=== PATIENT | female | born 1950 | race Caucasian/White ===

== ENCOUNTER 2022-07-19 09:15 | Observation (INO) | payer MEDICARE ==
[~2022-07-19] VITALS: Ht 157.5 cm; Wt 54.2 kg
[2022-07-19 10:13] LABS: BASO # 0.02 K/mm3 (0.02-0.10); HEMATOCRIT 37.1 % (37.0-47.0); HEMOGLOBIN 12.7 g/dL (12.5-16.0); LYMPH# 0.88 K/mm3 (1.50-4.00); MEAN CELL VOLUME 91 fl (78-100); MEAN CORPUSCULAR HEMOGLOBIN 31 pg (27-31); MEAN CORPUSCULAR HGB CONC 34 g/dL (33-37); MEAN PLATELET VOLUME 11.7 fl (7.4-10.4); NEU # 14.89 K/mm3 (1.40-6.50); PLATELET COUNT 291 K/mm3 (130-400); RED BLOOD COUNT 4.06 M/mm3 (4.10-5.30); RED CELL DISTRIBUTION WIDTH 12.7 % (11.5-14.5); WHITE BLOOD COUNT 16.9 K/mm3 (4.8-10.8)
[2022-07-19 10:24] LABS: POTASSIUM 4.1 mmol/L (3.5-5.1)
[2022-07-19 10:25] LABS: CALCIUM 9.4 mg/dL (8.3-10.5)
[2022-07-19 10:26] LABS: TOTAL PROTEIN 7.5 g/dL (6.2-8.1)
[2022-07-19 10:28] LABS: TOTAL BILIRUBIN 3.1 mg/dL (0.2-1.2)
[2022-07-19 11:25] LABS: URINE APPEARANCE CLOUDY; URINE COLOR YELLOW; URINE GLUCOSE NEGATIVE (NEGATIVE); URINE KETONE 1+ (NEGATIVE); URINE PROTEIN(semi-quant) 1+ (NEGATIVE)
[2022-07-19 11:26] LABS: URINE BILIRUBIN NEGATIVE (NEGATIVE); URINE BLOOD 50 ery/uL (NEGATIVE); URINE LEUKOCYTE ESTERASE 1+ (NEGATIVE); URINE NITRATE POSITIVE (NEGATIVE); URINE UROBILINOGEN 8 mg/dL (NORMAL); URINE WBC >50 /hpf (0-3)
[2022-07-19 14:37] VITALS: BP 103/64
[2022-07-19 18:10] VITALS: BP 107/67
[2022-07-19 21:30] VITALS: BP 107/61
[2022-07-20 02:04] VITALS: BP 132/77
[2022-07-20 06:20] VITALS: BP 117/64
[2022-07-20 09:54] LABS: BASO # 0.03 K/mm3 (0.02-0.10); EOS # 0.11 K/mm3 (0.04-0.40); EOS % 0.7 % (1.0-5.0); HEMATOCRIT 35.5 % (37.0-47.0); HEMOGLOBIN 11.9 g/dL (12.5-16.0); LYMPH# 1.24 K/mm3 (1.50-4.00); MEAN CELL VOLUME 93 fl (78-100); MEAN CORPUSCULAR HEMOGLOBIN 31 pg (27-31); MEAN CORPUSCULAR HGB CONC 34 g/dL (33-37); MEAN PLATELET VOLUME 11.7 fl (7.4-10.4); MONO # 1.25 K/mm3 (0.20-0.80); NEU # 13.45 K/mm3 (1.40-6.50); PLATELET COUNT 326 K/mm3 (130-400); RED BLOOD COUNT 3.83 M/mm3 (4.10-5.30); RED CELL DISTRIBUTION WIDTH 12.9 % (11.5-14.5); WHITE BLOOD COUNT 16.2 K/mm3 (4.8-10.8)
[2022-07-20 10:04] LABS: POTASSIUM 3.6 mmol/L (3.5-5.1)
[2022-07-20 10:39] VITALS: BP 108/61
[2022-07-20 14:33] VITALS: BP 109/61
[2022-07-20 17:25] VITALS: BP 118/65
[2022-07-20 22:15] VITALS: BP 130/67
[2022-07-21 02:12] VITALS: BP 122/58
[2022-07-21 05:52] VITALS: BP 134/55
[2022-07-21 10:44] VITALS: BP 113/57
[2022-07-21 14:18] VITALS: BP 131/69
[2022-07-21 18:24] VITALS: BP 114/65
[2022-07-21 21:18] VITALS: BP 132/67
[2022-07-22 02:24] VITALS: BP 167/73
[2022-07-22 06:02] VITALS: BP 149/70
[2022-07-22 07:48] LABS: BASO # 0.04 K/mm3 (0.02-0.10); EOS # 0.24 K/mm3 (0.04-0.40); EOS % 2.4 % (1.0-5.0); HEMATOCRIT 35.4 % (37.0-47.0); HEMOGLOBIN 11.8 g/dL (12.5-16.0); MEAN CELL VOLUME 92 fl (78-100); MEAN CORPUSCULAR HEMOGLOBIN 31 pg (27-31); MEAN CORPUSCULAR HGB CONC 33 g/dL (33-37); MEAN PLATELET VOLUME 11.5 fl (7.4-10.4); MONO # 0.65 K/mm3 (0.20-0.80); NEU # 8.05 K/mm3 (1.40-6.50); PLATELET COUNT 375 K/mm3 (130-400); RED BLOOD COUNT 3.86 M/mm3 (4.10-5.30); RED CELL DISTRIBUTION WIDTH 12.8 % (11.5-14.5)
[2022-07-22 07:57] LABS: ALBUMIN 2.5 g/dL (3.4-4.8); POTASSIUM 3.9 mmol/L (3.5-5.1)
[2022-07-22 07:58] LABS: CALCIUM 8.8 mg/dL (8.3-10.5)
[2022-07-22 08:00] LABS: TOTAL PROTEIN 6.7 g/dL (6.2-8.1)
[2022-07-22 08:01] LABS: TOTAL BILIRUBIN 1.2 mg/dL (0.2-1.2)
[2022-07-22 10:12] VITALS: BP 116/55
[2022-07-22 13:51] VITALS: BP 102/57
[2022-07-22 17:22] VITALS: BP 120/54
[2022-07-22 22:22] VITALS: BP 144/81
[2022-07-23 02:13] VITALS: BP 147/61
[2022-07-23 06:12] VITALS: BP 154/67
[2022-07-23] MEDS ORDERED: HYDROCODONE BIT1 T45 PO (09:42)
[2022-07-23] MEDS ORDERED: CEFDINIR300 MG PO (09:42)
[2022-07-23 10:11] VITALS: BP 109/61
[2022-07-23 14:09] VITALS: BP 118/60
== END 2022-07-23 15:25 | disposition home or self-care (01) ==
LOC: ED 09:15 → MED/SURG 13:04
PROVIDERS: Nurse Practitioner; ADMIT Family Medicine
DX: M16.11 Unilateral primary osteoarthritis, right hip (principal); N39.0 Urinary tract infection, site not specified; E46 Unspecified protein-calorie malnutrition; Z68.21 Body mass index [BMI] 21.0-21.9, adult; F17.210 Nicotine dependence, cigarettes, uncomplicated; T14.8XXA Other injury of unspecified body region, initial encounter; Z59.1 Inadequate housing; W08.XXXA Fall from other furniture, initial encounter; Y93.9 Activity, unspecified; Y92.9 Unspecified place or not applicable
CPT/HCPCS: G0378; J0696; J1650; J2270

== ENCOUNTER 2022-10-05 23:16 | Emergency (ER) | payer MEDICARE, MEDICAID ==
[~2022-10-05] VITALS: Wt 62.4 kg
[~2022-10-05 23:16] MED LIST: CEFDINIR300 MG PO; HYDROCODONE BIT1 T45 PO
[2022-10-05] MEDS ORDERED: CARVEDILOL3.125 MG PO (23:26)
[2022-10-05] MEDS ORDERED: PROAIR HFA0.09 MG/AC IH (23:27)
[2022-10-05] MEDS ORDERED: ATORVASTATIN CA40 MG PO (23:27)
[2022-10-05] MEDS ORDERED: ELIQUIS5 MG PO (23:50)
[2022-10-05] MEDS ORDERED: ACETAMINOPHEN-H1 TA2 PO (23:51)
[2022-10-05] MEDS ORDERED: VITAMIN D21250 MCG PO (23:52)
[2022-10-05 23:59] LABS: BASO # 0.04 K/mm3 (0.02-0.10); EOS # 0.26 K/mm3 (0.04-0.40); EOS % 3.2 % (1.0-5.0); HEMATOCRIT 33.9 % (37.0-47.0); HEMOGLOBIN 11.1 g/dL (12.5-16.0); LYMPH# 1.59 K/mm3 (1.50-4.00); MEAN CELL VOLUME 94 fl (78-100); MEAN CORPUSCULAR HEMOGLOBIN 31 pg (27-31); MEAN CORPUSCULAR HGB CONC 33 g/dL (33-37); MONO # 0.76 K/mm3 (0.20-0.80); NEU # 5.41 K/mm3 (1.40-6.50); PLATELET COUNT 264 K/mm3 (130-400); RED BLOOD COUNT 3.61 M/mm3 (4.10-5.30); RED CELL DISTRIBUTION WIDTH 14.2 % (11.5-14.5); WHITE BLOOD COUNT 8.1 K/mm3 (4.8-10.8)
[2022-10-06 00:04] LABS: ALBUMIN 2.9 g/dL (3.4-4.8)
[2022-10-06 00:05] LABS: POTASSIUM 4.5 mmol/L (3.5-5.1)
[2022-10-06 00:06] LABS: CALCIUM 9.2 mg/dL (8.3-10.5)
[2022-10-06 00:07] LABS: TOTAL PROTEIN 7.3 g/dL (6.2-8.1)
[2022-10-06 00:09] LABS: TOTAL BILIRUBIN 0.8 mg/dL (0.2-1.2)
[2022-10-06] MEDS ORDERED: PERCOCET 325 MG1 TA2 PO (01:30)
[2022-10-06 03:00] VITALS: BP 124/78
== END 2022-10-06 03:00 | disposition home or self-care (01) ==
LOC: ED 23:16
PROVIDERS: Family Medicine
DX: M16.11 Unilateral primary osteoarthritis, right hip (principal); R74.8 Abnormal levels of other serum enzymes; I48.0 Paroxysmal atrial fibrillation; Z79.01 Long term (current) use of anticoagulants; Z87.891 Personal history of nicotine dependence